=== PATIENT | male | born 1955 | race African-American/Black ===

== ENCOUNTER 2020-01-14 18:21 | Emergency (ER) | payer MEDICAID, MEDICARE, OTHER ==
[~2020-01-14] VITALS: Ht 175.3 cm; Wt 81.0 kg
[2020-01-14] MEDS ORDERED: VISCOUS LIDOCAINE 2% 15 ML UDC PO ONE (18:45)
[2020-01-14] MEDS ORDERED: ASPIRIN 81MG TABLET PO ONE (18:45)
[2020-01-14] MEDS ORDERED: MAGNESIUM/ALUMINUM HYDROXIDE/SIMETHICONE 30ML UDC PO ONE (18:45)
[2020-01-14 19:37] LABS: BASOPHILS % 0.9 % (0.0-2.0); HEMATOCRIT. 40.8 % (42.0-52.0); HEMOGLOBIN. 13.5 g/dL (14.0-18.0); LYMPHOCYTES % 28.4 % (20.0-50.0); MEAN CORPUSCULAR HEMOGLOBIN 28.5 pg (28.0-32.0); MEAN CORPUSCULAR VOLUME 86.5 fL (80.0-94.0); MEAN PLATELET VOLUME 10.8 fl (7.4-10.4); NEUTROPHILS % 59.7 % (40.0-76.0); PLATELET 191 x1000/uL (130-400); RED BLOOD CELL COUNT 4.72 mill/uL (4.7-6.1)
[2020-01-14 19:43] LABS: CHLORIDE 107 mEq/L (98-107)
[2020-01-15 01:20] VITALS: BP 157/82
== END 2020-01-15 01:22 | disposition home or self-care (01) ==
LOC: ER 18:21
DX: R07.89 Other chest pain (principal); F41.9 Anxiety disorder, unspecified; I10 Essential (primary) hypertension; N28.9 Disorder of kidney and ureter, unspecified; Z87.891 Personal history of nicotine dependence; Z98.890 Other specified postprocedural states
CPT/HCPCS: 36415; 71045; 80053; 83880; 84484; 85025; 93005; 99285

== ENCOUNTER 2020-02-08 20:34 | Emergency (ER) | payer MEDICARE, MEDICAID ==
[~2020-02-08] VITALS: Ht 175.3 cm; Wt 90.7 kg
[2020-02-08] MEDS ORDERED: ASPIRIN 81MG TABLET PO ONE (20:45)
[2020-02-08 21:41] LABS: BASOPHILS % 0.7 % (0.0-2.0); EOSINOPHILS % 1.5 % (0.0-5.0); HEMATOCRIT. 41.1 % (42.0-52.0); HEMOGLOBIN. 13.4 g/dL (14.0-18.0); LYMPHOCYTES % 25.6 % (20.0-50.0); MEAN CORPUSCULAR HEMOGLOBIN 28.1 pg (28.0-32.0); MEAN CORPUSCULAR VOLUME 86.2 fL (80.0-94.0); MONOCYTES % 10.7 % (2.0-8.0); NEUTROPHILS % 61.5 % (40.0-76.0); PLATELET 200 x1000/uL (130-400); RED BLOOD CELL COUNT 4.77 mill/uL (4.7-6.1); RED CELL DISTRIBUTION WIDTH 14.9 % (11.6-14.6)
[2020-02-08 21:50] LABS: CHLORIDE 107 mEq/L (98-107)
[2020-02-08] MEDS ORDERED: NITROGLYCERIN 0.4MG TABLET SL SL ONE (22:15)
[2020-02-09 00:05] VITALS: BP 132/74
== END 2020-02-09 01:06 | disposition left against medical advice (07) ==
LOC: ER 20:34
DX: R07.89 Other chest pain (principal); I10 Essential (primary) hypertension; I20.0 Unstable angina; F14.10 Cocaine abuse, uncomplicated
CPT/HCPCS: 36415; 71045; 80053; 83880; 84484; 85025; 93005; 99285

== ENCOUNTER 2020-12-06 17:57 | Emergency (ER) | payer MEDICARE, MEDICAID ==
[~2020-12-06] VITALS: Ht 167.6 cm; Wt 90.0 kg
[2020-12-06] MEDS ORDERED: ACETAMINOPHEN 325MG TABLET PO ONE (18:30)
[2020-12-06] MEDS ORDERED: IBUPROFEN 400MG TABLET PO ONE (18:30)
[2020-12-06] MEDS: MORPHINE SULFATE 4 MG/ML CPJ (NOT FOR IM USE) IV PRN ×2 (22:05→23:21)
[2020-12-06] MEDS ORDERED: MORPHINE SULFATE 4 MG/ML CPJ (NOT FOR IM USE) IV PRN (23:15)
[2020-12-06 23:27] VITALS: BP 155/88
== END 2020-12-06 23:58 | disposition short-term general hospital (02) ==
LOC: ER 18:01
DX: S82.202A Unspecified fracture of shaft of left tibia, initial encounter for closed fracture (principal); F14.10 Cocaine abuse, uncomplicated; W18.30XA Fall on same level, unspecified, initial encounter; Y93.89 Activity, other specified; Y92.89 Other specified places as the place of occurrence of the external cause; Y99.8 Other external cause status; I10 Essential (primary) hypertension
CPT/HCPCS: 73562; 96374; 99283; J2270; L1830